=== PATIENT | female | born 1980 | race Caucasian/White ===

== ENCOUNTER 2019-08-09 12:04 | Emergency (ER) | payer OTHER, SELFPAY ==
[2019-08-09 12:15] VITALS: BP 138/91; PULSE 105; RESP 18; TEMP 36.8; O2SAT 100
--- NOTE | 2019-08-09 12:23 | ED.EXTPRO ---
HPI - Extremity Problem General Chief complaint: Extremity Problem,Nontraumatic Stated complaint: right wrist injury Time Seen by Provider: 08/09/19 12:23 Source: patient Mode of arrival: ambulatory Limitations: no limitations History of Present Illness HPI Narrative: Tenisha Baez is a 48 yo female with a chronic R wrist problem who is here for increased pain in R wrist after flicking water last night. Related Data Home Medications Medication Instructions Recorded Confirmed fenofibrate nanocrystallized 145 mg PO DAILY 08/09/19 08/09/19 sulindac 200 mg PO BID 08/09/19 08/09/19 Allergies Allergy/AdvReac Type Severity Reaction Status Date / Time hydrocodone Allergy Unknown Rash Verified 08/09/19 12:24 ketorolac AdvReac Unknown Headache Verified 08/09/19 13:13 sumatriptan AdvReac Unknown Headache Verified 08/09/19 13:13 tramadol AdvReac Unknown Headache Verified 08/09/19 13:14 Review of Systems Review of Systems: Narrative: CONSTITUTIONAL: Denies fever, chills, sweats. EYES: Denies visual changes, redness, discharge. ENT: Denies rhinorrhea, congestion, sore throat, otalgia. CARDIOVASCULAR: Denies chest pain, palpitations, edema. RESPIRATORY: Denies dyspnea, wheezing, cough GASTROINTESTINAL: Denies abdominal pain, nausea, vomiting, diarrhea. GENITOURINARY: Denies dysuria, hematuria, abnormal discharge SKIN: Denies rash or itching. NEUROLOGIC: Denies numbness, or focal weakness. PSYCHIATRIC: Denies anxiety or depression. right wrist pain PMFSH Social History Social History (Updated 08/09/19 @ 12:31 by Johanna Frausto CNP) Smoking status: Current every day smoker Tobacco type: cigarettes Alcohol intake: current Comments At time of signature, I agree with nursing past medical, surgical, social and family history. There is no relevant family history pertinent to the presenting complaint. Blood pressure and pulse elevated; due to right wrist pain for this visit Exam Narrative: Exam Narrative: GENERAL: This is a well-nourished, well-developed patient, in moderate distress. HEAD: normocephalic, atraumatic. EYES: PERRL. Sclera clear/white. Vision is grossly intact. EARS: External ears normal. Hearing grossly intact. NOSE: External nose normal without nasal discharge, nares without redness, no rhinorrhea. THROAT: Mucous membranes moist, NECK: Neck supple, CARDIOVASCULAR: Regular rate and rhythm without murmurs, gallops, or rubs. RESPIRATORY: Clear to auscultation. Breath sounds equal bilaterally. No wheezes, rales, or rhonchi. GASTROINTESTINAL: Abdomen soft, non-tender, SKIN: warm, intact with no suspicious lesions or rash, good texture and turgor. NEURO: awake, alert, and oriented to person, place and time. There were no obvious focal neurologic abnormalities. Steady gait EXTREMITIES: Normal range of motionon L states unable to supinate/pronate (will not do because of pain), unable to perform finger opposition BACK: Nontender without deformity Course Course Emergency Course: Started on Medrol Dosepak for pain, Stepan wrap and rest Vital Signs Vital signs: Vital Signs Temperature 98.2 F 08/09/19 12:15 Pulse Rate 105 H 08/09/19 12:15 Respiratory Rate 18 08/09/19 12:15 Blood Pressure 138/91 H 08/09/19 12:15 Pulse Oximetry 100 08/09/19 12:15 Temperature 98.2 F 08/09/19 12:15 Pulse Rate 105 H 08/09/19 12:15 Respiratory Rate 18 08/09/19 12:15 Blood Pressure 138/91 H 08/09/19 12:15 Pulse Oximetry 100 08/09/19 12:15 Discharge Plan Discharge Clinical Impression: Pain in joint of right wrist Patient Disposition: Home, Self-Care Condition: Stable Instructions: Arthralgia (ED) Prescriptions: New methylprednisolone [Medrol (Jeremiah)] 4 mg tablets,dose pack See Rx Instructions .ROUTE .COMPLEX Qty: 21 RF: 0 No Action sulindac 200 mg tablet 200 mg PO BID RF: 0 fenofibrate nanocrystallized 145 mg tablet 145 mg PO DAILY RF: 0 Follow-up/Referrals
== END 2019-08-09 12:35 | disposition home or self-care (01) ==
PROVIDERS: Emergency Provider Nurse Practitioner; PCP Internal Medicine
DX: M25.531 Pain in right wrist (principal); F17.210 Nicotine dependence, cigarettes, uncomplicated
CPT/HCPCS: 99213; G0463

== ENCOUNTER 2021-05-25 12:27 | Emergency (ER) | payer OTHER, SELFPAY ==
[2021-05-25 12:32] VITALS: BP 134/91; PULSE 91; RESP 14; TEMP 36.9; O2SAT 99
--- NOTE | 2021-05-25 12:36 | ED.EAR ---
HPI - Ear Problem General Chief complaint: Ear Stated complaint: ear pain/sore throat Time Seen by Provider: 05/25/21 12:36 Source: patient, RN notes reviewed and old records reviewed Mode of arrival: ambulatory Limitations: no limitations History of Present Illness HPI Narrative: 40-year-old female presents to the [facility] with 4 to 5 days of left ear pain and sore throat. Has taken ibuprofen. No other treatment prior to arrival. Denies fevers, nausea, vomiting, diarrhea. No chest pain or shortness of breath. No abdominal pain MD Complaint: ear pain Related Data Home Medications Medication Instructions Recorded Confirmed fenofibrate nanocrystallized 145 mg PO DAILY 08/09/19 05/25/21 amitriptyline 100 mg PO QPM 05/25/21 05/25/21 amlodipine 5 mg PO DAILY 05/25/21 05/25/21 apixaban [Eliquis] 5 mg PO DAILY 05/25/21 05/25/21 atorvastatin 40 mg PO DAILY 05/25/21 05/25/21 bupropion HCl 150 mg PO DAILY 05/25/21 05/25/21 oxycodone-acetaminophen 1 tablet PO Q6-12H PRN MDD 4 05/25/21 05/25/21 Allergies Allergy/AdvReac Type Severity Reaction Status Date / Time sumatriptan AdvReac Unknown Headache Verified 05/25/21 12:44 Review of Systems Review of Systems: All systems reviewed & are unremarkable except as noted in HPI and below Constitutional: Constitutional: Reports no additional constitutional complaints, Denies chills and Denies fever(s) Eyes: Eyes: Reports no additional eye complaints ENT: Reports as per HPI, Denies change in voice, Denies dental pain, Denies vertigo, Denies dizziness and Denies throat swelling Comments: Ear pain Cardiovascular: Cardiovascular: Reports no additional cardiovascular complaints, Denies chest pain and Denies dyspnea Respiratory: Respiratory: Reports no additional respiratory complaints, Denies cough and Denies dyspnea Gastrointestinal: Gastrointestinal: Reports no additional gastrointestinal complaints, Denies abdominal pain, Denies nausea and Denies vomiting Musculoskeletal: Musculoskeletal: Reports no additional musculoskeletal complaints Integumentary/Breasts: Skin/Breast: Reports system reviewed and no additional complaints, except as docu Neurologic: Reports system reviewed and no additional complaints, except as documented, Denies vertigo and Denies dizziness Psychiatric: Psychiatric: Reports no additional psychiatric complaints Allergic/Immunologic: Allergic/Immunologic: Reports no additional allergic/immunologic complaints and Denies throat swelling PMFSH Social History Social History (Updated 08/09/19 @ 12:31 by Johanna Frausto CNP) Smoking status: Current every day smoker Tobacco type: cigarettes Alcohol intake: current Comments At the time of my signature, I reviewed and agree with the nursing past medical, surgical, social, and family history. There is no relevant family history pertinent to the patient complaint. Exam Const: General: healthy appearing, no acute distress and alert Nutritional Appearance: well nourished and obese Orientation/consciousness: patient oriented x3 Limitations: no limitations HENMT: Head: normal to inspection Ears: external ears normal, TM's normal bilaterally and EAC's normal General nose exam: Normal external nose present and Normal nasal mucous membranes and turbinates present Face and sinus: normal facial exam Mouth: Yes Normal oral and palatal mucosa present Throat: posterior oropharynx normal, tonsils normal and uvula midline Eyes: Conjunctivae: conjunctivae normal Pupils: Equal, round and reactive pupils present Neck: Neck: normal visual inspection, no lymphadenopathy and no meningeal signs Chest: Chest palpation & inspection: normal inspection of the chest Resp: Effort & Inspection: normal respiratory effort and no use of accessory muscles Auscultation: clear to auscultation bilaterally, no crackles, no rales, no rhonchi and no wheezes Cardio: Rate: regular rate Rhythm: regular rhythm : General: Yes no CVA
== END 2021-05-25 13:07 | disposition home or self-care (01) ==
PROVIDERS: Emergency Provider Nurse Practitioner
DX: J06.9 Acute upper respiratory infection, unspecified (principal); F17.210 Nicotine dependence, cigarettes, uncomplicated; E78.00 Pure hypercholesterolemia, unspecified
CPT/HCPCS: 87081; 87880; 99213; G0463